=== PATIENT | female | born 1985 | race Caucasian/White ===

== ENCOUNTER → 2016-07-28 | Outpatient (CLI) | payer OTHER ==
[~2016-07-28] MED LIST: FLUO40CA8 PO; OMEP20TA PO
--- NOTE | 2016-07-28 11:24 | DIAGNOSTIC IMAGING REPORT ---
THYROID ULTRASOUND CLINICAL HISTORY: Nontoxic goiter. COMPARISON STUDY: Thyroid ultrasound July 30, 2015. TECHNIQUE: Sonography of the thyroid gland was performed. FINDINGS: The right lobe is surgically absent. The left lobe measures 4.9 x 1.5 x 1.3 cm. A few tiny cystic nodules within the left lobe have benign imaging characteristics and are unchanged since prior exam. There are no abnormalities within the right lobectomy bed. IMPRESSION: 1. Expected findings following right thyroid lobectomy. 2. No significant change in a few benign-appearing subcentimeter left lobe cystic nodules. Electronically signed by: Shane Colon M.D. 07/28/2016 11:21 AM
== END | disposition home or self-care (01) ==
LOC: C.ULTR 10:53
PROVIDERS: ATTEND Otolaryngology
DX: E04.1 Nontoxic single thyroid nodule (principal)

== ENCOUNTER → 2017-09-17 | Outpatient (CLI) | payer BC ==
--- NOTE | 2017-09-17 11:29 | DIAGNOSTIC IMAGING REPORT ---
SOFT TISS HEAD/NECK-THYROID HISTORY: Multinodular thyroid NON TOXIC MULTINODULAR GOITER COMPARISON: 07/30/2015. 07/28/2016. FINDINGS: Right lobe: Surgically removed Left lobe: Multinodular multicystic configuration. Maximum dimension 4.9 cm. Several small cysts measuring up to 3 mm. Isthmus: No nodules. IMPRESSION: 1. Operative changes consistent with right thyroid removal. 2. Multicystic multinodular left thyroid with cysts/hypoechoic nodules measuring less than 3 mm The above report was generated using voice recognition software. It may contain grammatical, syntax or spelling errors. Electronically signed by: Asif Suggs M.D. 09/17/2017 11:28 AM Dictated Date/Time: 09/17/2017 11:24 AM
== END | disposition home or self-care (01) ==
LOC: C.ULTR 10:37
PROVIDERS: ATTEND Otolaryngology
DX: E04.2 Nontoxic multinodular goiter (principal)